=== PATIENT | female | born 1995 | race Caucasian/White ===

== ENCOUNTER → 2022-01-07 | Outpatient (CLI) | payer BC ==
[~2022-01-07] MED LIST: BIRTH CONTROL; Esgic Tablet1 EACH PO; METO10 PO
== END | disposition home or self-care (01) ==
LOC: LAB 11:21 → LAB SHORT 11:21
PROVIDERS: Obstetrics & Gynecology
DX: Z01.419 Encounter for gynecological examination (general) (routine) without abnormal findings (principal)
CPT/HCPCS: G0123

== ENCOUNTER → 2023-01-08 | Outpatient (CLI) | payer BC ==
[~2023-01-08] MED LIST changes: +PROVERA PO
[2023-01-09 09:38] LABS: Candida species (DNA Probe) Negative (NEGATIVE); G. vaginalis (DNA Probe) Negative (NEGATIVE); T. vaginalis (DNA Probe) Negative (NEGATIVE)
== END | disposition home or self-care (01) ==
LOC: LAB SHORT 12:48 → LAB 12:48
PROVIDERS: Advanced Practice Midwife
DX: N76.0 Acute vaginitis (principal)
CPT/HCPCS: 87480; 87510; 87660